=== PATIENT | female | born 2000 | race Caucasian/White ===

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

== ENCOUNTER 2023-03-14 17:27 | Emergency (ER) | payer BC ==
[2023-03-14 18:47] LABS: Appearance,Urine Clear (Clear); Bilirubin,Urine Negative (Negative); Blood,Urine Negative (Negative); Color,Urine Colorless; Glucose,Urine (UA) Negative (Negative); Ketones,Urine Trace (Negative); Leukocyte Esterase,Urine Negative (Negative); Nitrite,Urine Negative (Negative); PH, Urine 6.5 (5.0-8.0); Protein,Urine Trace (Negative); Specific Gravity,Urine 1.019 (1.001-1.035); Urobilinogen,Urine <2.0 mg/dL (<2.0)
[2023-03-14] MEDS: ACETAMINOPHEN TAB 500 MG TAB PO STA (18:52)
[2023-03-14 18:54] LABS: Potassium 3.6 mmol/L (3.5-5.1)
[2023-03-14 18:55] LABS: ALT 15 U/L (4-34); AST 24 U/L (14-36); African American GFR (CKD) >90 (>60 ml/min/1.73 sqM); Alcohol <10 mg/dL; Blood Urea Nitrogen 9 mg/dL (7-17); Chloride 108 mmol/L (98-107); Non-African American GFR(CKD) >90 (>60 ml/min/1.73 sqM); Sodium 138 mmol/L (137-145); Total Bilirubin 0.5 mg/dL (0.2-1.3)
[2023-03-14 19:01] LABS: Amphetamine Screen,Urine Not Detected (NotDetected); Barbiturate Screen,Urine Not Detected (NotDetected); Benzodiazepines Screen,Urine Not Detected (NotDetected); Cocaine Screen,Urine Not Detected (NotDetected); Methadone Screen, Urine Not Detected (NotDetected); Opiate Screen,Urine Not Detected (NotDetected); Oxycodone Screen, Urine Not Detected (NotDetected); Phencyclidine Screen,Urine Not Detected (NotDetected); Tricyclic Antidepressant,Urine Not Detected (NotDetected); Urn Cannabinoid Scrn Detected (NotDetected)
[2023-03-14 19:06] LABS: Alkaline Phosphatase 73 U/L (38-126); Anion Gap 11 mmol/L; Calcium 8.8 mg/dL (8.4-10.2); Carbon Dioxide 19 mmol/L (22-30); Glucose 95 mg/dL (74-99); Magnesium 2.2 mg/dL (1.6-2.3); Total Protein 6.9 g/dL (6.3-8.2)
[2023-03-14 20:17] LABS: Basophils % (A) 0 %; Eosinophils # (A) 0.1 k/uL (0-0.7); Eosinophils % (A) 1 %; HCT 38.2 % (34.0-46.0); HGB 13.4 gm/dL (11.4-16.0); Lymphocytes # (A) 0.9 k/uL (1.0-4.8); Lymphocytes % (A) 8 %; MCH 30.5 pg (25.0-35.0); MCHC 35.2 g/dL (31.0-37.0); MCV 86.8 fL (80.0-100.0); Mean Platelet Volume 8.2; Monocytes # (A) 0.3 k/uL (0-1.0); Monocytes % (A) 2 %; Neutrophils % (A) 89 %; Platelet Count 161 k/uL (150-450); RDW 11.9 % (11.5-15.5); WBC 11.3 k/uL (3.8-10.6)
--- NOTE | 2023-03-14 20:26 | CT ---
EXAMINATION TYPE: CT brain wo con CT DLP: 1099.6 mGycm, Automated exposure control for dose reduction was used. DATE OF EXAM: 03/14/2023 7:47 PM COMPARISON: None. CLINICAL INDICATION:Female, 22 years old with history of seizure activity, acute visual loss, new ons et seizure TECHNIQUE: Brain: Axial CT images of the brain were obtained with coronal and sagittal reformats created and rev iewed. Contrast used: None. Oral contrast used: None. FINDINGS: Brain: Extra-axial spaces: No abnormal extra-axial fluid collections. Ventricular system: Within normal limits Cerebral parenchyma: No acute intraparenchymal hemorrhage or mass effect. The givens-white junction is well differentiated. Cerebellum: Unremarkable. Mass effect: No evidence of midline shift. Intracranial vasculature: unremarkable Soft tissues: Normal. Calvarium/osseous structures: No depressed skull fracture. Paranasal sinuses and mastoid air cells: Mild scattered paranasal sinus disease. Visualized orbits: Orbital contents are intact. IMPRESSION: No acute intracranial process.
--- NOTE | 2023-03-14 20:36 | CT ---
EXAMINATION TYPE: CT angio head neck CT DLP: 396.8 mGycm, Automated exposure control for dose reduction was used. DATE OF EXAM: 03/14/2023 8:01 PM COMPARISON: CT same day. CLINICAL INDICATION:Female, 22 years old with history of acute visual loss, new onset seizure; PHH, a cute visual loss, new onset seizure TECHNIQUE: Axially acquired helical CT angiogram of the head and neck was obtained with contrast. Axi al images are supplemented with 3D reconstructions and MIP images which were post-processed at an in dependent workstation. NASCET criteria used. Contrast used:65ml mL of Isovue 370 with IV Contrast, Oral contrast used: None. FINDINGS: CTA HEAD: The ophthalmic arteries appear symmetrical and patent. No evidence of acute intracranial hemorrhage, mass effect, or midline shift. The ventricles, sulci, and cisterns are unremarkable. The visualized portions of the internal carotid arteries, middle cerebral arteries, anterior cerebral arteries, and posterior cerebral arteries are patent. Atrophic left transverse sinus, right. The basilar and vertebral arteries are patent. CTA NECK: Right Carotid System: The common carotid artery and external carotid artery are patent. The carotid bifurcation demonstrate s no evidence of hemodynamically significant stenosis. The remaining portions of the internal carotid artery demonstrate normal size without significant narrowing. Left Carotid System: The common carotid artery and external carotid artery are patent. The carotid bifurcation demonstrate s no evidence of hemodynamically significant stenosis. The remaining portions of the internal carotid artery demonstrate normal size without significant narrowing. Vertebral arteries are patent without evidence hemodynamically significant stenosis. There is a three-vessel aortic arch. The origins of the great vessels are patent. No evidence of hemo dynamically significant stenosis. 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 This courses posterior to the esophagus. Upper thorax: IMPRESSION: 1. The ophthalmic arteries appear patent bilaterally. No evidence of dissection of the cervical inter nal carotid arteries or vertebral arteries or any evidence of significant stenosis at the carotid bif urcations. 2. No evidence of intracranial high-grade stenosis or intracranial aneurysm. 3. 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 This courses posterior to the esophagus.
--- NOTE | 2023-03-14 21:06 | ED ---
Seizure HPI - General Chief Complaint: Seizure Stated Complaint: Seizure Source: EMS Mode of arrival: EMS Limitations: no limitations - History of Present Illness Initial Comments: 22-year-old female presents the emergency department as a new onset seizure. History is provided by her parents. The patient was driving home from her mother's house when she had a seizure. She was on the phone with her father at the time. She reported to him that she had a visual disturbance in her right to which she felt like she couldn't see anything. The patient then lost partial vision in her left eye. Her father called EMS. The patient had been found by a bystander who moved the patient to the passenger seat and moved the patient's vehicle off the road. She reported that the seizure lasted for less than 5 minutes. Patient was rigid. She then had 15 minutes of a postictal phase. No previous history of seizure-like activity. She denies visual change at this time. Does admit to headache. There is no incontinence. The patient did not bite her tongue. She denies concern for . No recent head trauma. No recent illnesses. No fevers. No other alleviating, precipitating or modifying factors - Related Data Home Medications Medication Instructions Recorded Confirmed No Known Home Medications 03/14/23 03/14/23 Allergies Allergy/AdvReac Type Severity Reaction Status Date / Time tetrahydrozoline AdvReac Unknown Verified 03/14/23 21:15 [From [email or web address]] Review of Systems ROS Statement: Those systems with pertinent positive or pertinent negative responses have been documented in the HPI. ROS Other: All systems not noted in ROS Statement are negative. Past Medical History Past Medical History: No Reported History History of Any Multi-Drug Resistant Organisms: None Reported Past Surgical History: No Surgical Hx Reported Past Psychological History: Anxiety, Depression Smoking Status: Current every day smoker, Vaper Past Alcohol Use History: Occasional Past Drug Use History: Marijuana General Exam Limitations: no limitations General appearance: alert, in no apparent distress Head exam: Present: atraumatic, normocephalic, normal inspection Eye exam: Present: normal appearance, PERRL, EOMI. Absent: scleral icterus, conjunctival injection, periorbital swelling ENT exam: Present: mucous membranes moist, other (patient bit her left lateral tongue) Neck exam: Present: normal inspection. Absent: tenderness, meningismus, lymphadenopathy Respiratory exam: Present: normal lung sounds bilaterally. Absent: respiratory distress, wheezes, rales, rhonchi, stridor Cardiovascular Exam: Present: normal rhythm, tachycardia, normal heart sounds. Absent: systolic murmur, diastolic murmur, rubs, gallop, clicks GI/Abdominal exam: Present: soft, normal bowel sounds. Absent: distended, tenderness, guarding, rebound, rigid Extremities exam: Present: normal inspection, full ROM, normal capillary refill. Absent: tenderness, pedal edema, joint swelling, calf tenderness Back exam: Present: normal inspection Neurological exam: Present: alert, oriented X3, CN II-XII intact Psychiatric exam: Present: normal affect, normal mood Skin exam: Present: warm, dry, intact, normal color. Absent: rash Course Vital Signs 03/14/23 03/14/23 03/14/23 17:36 18:54 21:25 Temperature 98.1 F 98.0 F Pulse Rate 116 H 72 76 Respiratory 20 18 20 Rate Blood Pressure 113/73 110/84 112/82 O2 Sat by Pulse 100 98 99 Oximetry Medical Decision Making - Medical Decision Making Was pt. sent in by a medical professional or institution (, PA, LICENSED OCCUPATIONAL THERAPIST, urgent care, hospital, or halfway...) When possible be specific @ -No Did you speak to anyone other than the patient for history (EMS, parent, family, police, friend...)? What history was obtained from this source @ -EMS, parents Did you review nursing and triage notes (agree or disagree)? Why? @ -I reviewed and agree with nursing and triage notes Were old charts reviewed (outside hosp., previous admission, EMS record, old EKG, old radiological studies, urgent care reports/EKG's, halfway records)? Report findings @ -No old charts were reviewed Differential Diagnosis (chest pain, altered mental status, abdominal pain women, abdominal pain men, vaginal bleeding, weakness, fever, dyspnea, syncope, headache, dizziness, GI bleed, back pain, seizure, CVA, palpatations, mental health, musculoskeletal)? @ -Differential Seizure: Recurrent seizure disorder, febrile seizure, alcohol withdrawal, stimulants, meningitis, encephalitis, intercranial hemorrhage, intracranial tumor, stroke, eclampsia, thyrotoxicosis, hypocalcemia, hyponatremia, hypernatremia, hypomagnesemia, psychogenic, this is not meant to be an all-inclusive list. EKG interpreted by me (3pts min.). @ -yes and demonstrates sinus rhythm with a rate of 99. CO interval 168. QRS 75. QTC of 420. No acute ST segment elevations or depressions X-rays interpreted by me (1pt min.). @ -None done CT interpreted by me (1pt min.). @ -yes, no acute process U/S interpreted by me (1pt. min.). @ -None done What testing was considered but not performed or refused? (CT, X-rays, U/S, labs)? Why? @ -MRI, EEG - patient refused admission What meds were considered but not given or refused? Why? @ -None Did you discuss the management of the patient with other professionals (professionals i.e. , PA, LICENSED OCCUPATIONAL THERAPIST, lab, RT, psych nurse, high school social studies teacher, plant associate, teacher, chief sustainability officer, director case management)? Give summary @ -Spoke with Dr. Umana Was smoking cessation discussed for >3mins.? @ -No Was critical care preformed (if so, how long)? @ -No Were there social determinants of health that impacted care today? How? (Homelessness, low income, unemployed, alcoholism, drug addiction, transportatio n, low edu. Level, literacy, decrease access to med. care, [facility], rehab)? @ -No Was there de-escalation of care discussed even if they declined (Discuss DNR or withdrawal of care, Hospice)? DNR status @ -No What co-morbidities impacted this encounter? (DM, HTN, Smoking, COPD, CAD, Cancer, CVA, ARF, Chemo, Hep., AIDS, mental health diagnosis, sleep apnea, morbid obesity)? @ -None Was patient admitted / discharged? Hospital course, mention meds given and route, prescriptions, significant lab abnormalities, going to OR and other pertinent info. @ -Upon arrival patient was placed into room 24. History and physical exam was performed. IV is established. Laboratory studies are conducted. CT and CTA are performed due to the patient's acute visual disturbance. Upon return results they are discuss the patient. Patient wants to go home. I did call and speak with Dr. Umana. States that the patient should not be started on antiepileptics at this time. He will facilitate an outpatient EEG. Patient will need to follow up with neurology. No driving for 6 months or other physically strenuous activities. Return for any new or worsening symptoms. Patient agreeable with plan and was discharged in stable condition Undiagnosed new problem with uncertain prognosis? @ -Yes Drug Therapy requiring intensive monitoring for toxicity (Heparin, Nitro, Insulin, Cardizem)? @ -No Were any procedures done? @ -No Diagnosis/symptom? @ -new onset seizure Acute, or Chronic, or Acute on Chronic? @ -acute Uncomplicated (without systemic symptoms) or Complicated (systemic symptoms)? @ -complicated Side effects of treatment? @ -No Exacerbation, Progression, or Severe Exacerbation? @ -No Poses a threat to life or bodily function? How? (Chest pain, USA, GA, pneumonia, PE, COPD, DKA, ARF, appy, cholecystitis, CVA, Diverticulitis, Homicidal, Suic idal, threat to staff... and all critical care pts) @ -No - Lab Data Result diagrams: 03/14/23 20:04 03/14/23 18:20 Lab Results 03/14/23 03/14/23 03/14/23 Range/Units 18:20 18:20 18:20 WBC (3.8-10.6) k/uL RBC (3.80-5.40) m/uL Hgb (11.4-16.0) gm/dL Hct (34.0-46.0) % MCV (80.0-100.0) fL MCH (25.0-35.0) pg MCHC (31.0-37.0) g/dL RDW (11.5-15.5) % Plt Count (150-450) k/uL MPV Neutrophils % % Lymphocytes % % Monocytes % % Eosinophils % % Basophils % % Neutrophils # (1.3-7.7) k/uL Lymphocytes # (1.0-4.8) k/uL Monocytes # (0-1.0) k/uL Eosinophils # (0-0.7) k/uL Basophils # (0-0.2) k/uL Sodium 138 (137-145) mmol/L Potassium 3.6 (3.5-5.1) mmol/L Chloride 108 H (98-107) mmol/L Carbon Dioxide 19 L (22-30) mmol/L Anion Gap 11 mmol/L BUN 9 (7-17) mg/dL Creatinine 0.78 (0.52-1.04) mg/dL Est GFR (CKD-EPI)AfAm >90 (>60 ml/min/1.73 sqM) Est GFR (CKD-EPI)NonAf >90 (>60 ml/min/1.73 sqM) Glucose 95 (74-99) mg/dL Lactic Ac Sepsis Rflx Plasma Lactic Acid Kris 2.9 H* (0.7-2.0) mmol/L Calcium 8.8 (8.4-10.2) mg/dL Magnesium 2.2 (1.6-2.3) mg/dL Total Bilirubin 0.5 (0.2-1.3) mg/dL AST 24 (14-36) U/L ALT 15 (4-34) U/L Alkaline Phosphatase 73 (38-126) U/L Total Protein 6.9 (6.3-8.2) g/dL Albumin 4.0 (3.5-5.0) g/dL Urine Color Colorless Urine Appearance Clear (Clear) Urine pH 6.5 (5.0-8.0) Ur Specific [place] 1.019 (1.001-1.035) Urine Protein Trace H (Negative) Urine Glucose (UA) Negative (Negative) Urine Ketones Trace H (Negative) Urine Blood Negative (Negative) Urine Nitrite Negative (Negative) Urine Bilirubin Negative (Negative) Urine Urobilinogen <2.0 (<2.0) mg/dL Ur Leukocyte Esterase Negative (Negative) Urine HCG, Qual (Not Detectd) Urine Opiates Screen Not Detected (NotDetected) Ur Oxycodone Screen Not Detected (NotDetected) Urine Methadone Screen Not Detected (NotDetected) Ur Barbiturates Screen Not Detected (NotDetected) U Tricyclic Antidepress Not Detected (NotDetected) Ur Phencyclidine Scrn Not Detected (NotDetected) Ur Amphetamines Screen Not Detected (NotDetected) U Methamphetamines Scrn Not Detected (NotDetected) U Benzodiazepines Scrn Not Detected (NotDetected) Urine Cocaine Screen Not Detected (NotDetected) U Marijuana (THC) Screen Detected H (NotDetected) Serum Alcohol <10 mg/dL 03/14/23 03/14/23 03/14/23 Range/Units 18:20 19:22 20:04 WBC 11.3 H (3.8-10.6) k/uL RBC 4.40 (3.80-5.40) m/uL Hgb 13.4 (11.4-16.0) gm/dL Hct 38.2 (34.0-46.0) % MCV 86.8 (80.0-100.0) fL MCH 30.5 (25.0-35.0) pg MCHC 35.2 (31.0-37.0) g/dL RDW 11.9 (11.5-15.5) % Plt Count 161 (150-450) k/uL MPV 8.2 Neutrophils % 89 % Lymphocytes % 8 % Monocytes % 2 % Eosinophils % 1 % Basophils % 0 % Neutrophils # 10.0 H (1.3-7.7) k/uL Lymphocytes # 0.9 L (1.0-4.8) k/uL Monocytes # 0.3 (0-1.0) k/uL Eosinophils # 0.1 (0-0.7) k/uL Basophils # 0.0 (0-0.2) k/uL Sodium (137-145) mmol/L Potassium (3.5-5.1) mmol/L Chloride (98-107) mmol/L Carbon Dioxide (22-30) mmol/L Anion Gap mmol/L BUN (7-17) mg/dL Creatinine (0.52-1.04) mg/dL Est GFR (CKD-EPI)AfAm (>60 ml/min/1.73 sqM) Est GFR (CKD-EPI)NonAf (>60 ml/min/1.73 sqM) Glucose (74-99) mg/dL Lactic Ac Sepsis Rflx Y Plasma Lactic Acid Kris (0.7-2.0) mmol/L Calcium (8.4-10.2) mg/dL Magnesium (1.6-2.3) mg/dL Total Bilirubin (0.2-1.3) mg/dL AST (14-36) U/L ALT (4-34) U/L Alkaline Phosphatase (38-126) U/L Total Protein (6.3-8.2) g/dL Albumin (3.5-5.0) g/dL Urine Color Urine Appearance (Clear) Urine pH (5.0-8.0) Ur Specific [place] (1.001-1.035) Urine Protein (Negative) Urine Glucose (UA) (Negative) Urine Ketones (Negative) Urine Blood (Negative) Urine Nitrite (Negative) Urine Bilirubin (Negative) Urine Urobilinogen (<2.0) mg/dL Ur Leukocyte Esterase (Negative) Urine HCG, Qual Not Detected (Not Detectd) Urine Opiates Screen (NotDetected) Ur Oxycodone Screen (NotDetected) Urine Methadone Screen (NotDetected) Ur Barbiturates Screen (NotDetected) U Tricyclic Antidepress (NotDetected) Ur Phencyclidine Scrn (NotDetected) Ur Amphetamines Screen (NotDetected) U Methamphetamines Scrn (NotDetected) U Benzodiazepines Scrn (NotDetected) Urine Cocaine Screen (NotDetected) U Marijuana (THC) Screen (NotDetected) Serum Alcohol mg/dL Disposition Clinical Impression: New onset seizure Disposition: HOME SELF-CARE Condition: Stable Instructions (If sedation given, give patient instructions): Seizure/Epilepsy Discharge Instructions & Follow-Up Additional Instructions: They will get in touch with you from the hospital to schedule the EEG. Dr. Umana will be ordering this. No driving until you are seizure free for 6 months. Return for any new or worsening symptoms. You will need to see a neurologist. I recommend seeing Dr. Brooks, who is located in [place] Is patient prescribed a controlled substance at d/c from ED?: No Referrals: Frank Skelton MD [Primary Care Provider] - 1-2 days Rodrigo Brooks MD [STAFF PHYSICIAN] - 1-2 days Time of Disposition: 21:13
[2023-03-14 21:46] VITALS: BP 112/82; PULSE 76; RESP 20; TEMP 98
--- NOTE | 2023-04-01 15:14 | P.PN ---
Progress Note - Text Progress Note Date: 04/01/23 On 03/14/2023 patient presented to the ED for new onset seizure. Patient at that time did not want to weight in the hospital and wanted further work-up as an outpatient. We are able to coordinate an EEG as an outpatient sooner than for her to follow-up with a neurologist to get an EEG. The EEG shows a rare left temporal discharges which can increase risk for seizure. Also has temporal slowing. No seizure on the EEG. I personally called the patient via phone and spoke with her and notified her that I recommend that she follows up with a neurologist as soon as possible. She stated that she has an appointment with her PCP within a few days and will get referral. I also notified her that she needs to be started on antiepileptic drug and we'll defer that to the primary and her neurologist. i notified her that per [place] DMV for seizure, avoid driving for 6 month until seizure-free, avoid heights, avoid swimming unassisted or using heavy machinery.
== END 2023-03-14 21:30 | disposition home or self-care (01) ==
LOC: EC 17:27
DX: R56.9 Unspecified convulsions (principal); F17.290 Nicotine dependence, other tobacco product, uncomplicated; F12.90 Cannabis use, unspecified, uncomplicated; Z86.59 Personal history of other mental and behavioral disorders; Z88.8 Allergy status to other drugs, medicaments and biological substances
CPT/HCPCS: 99285 ×2; 36415; 93005; 80053; 83605; 83735; 85025; 81003; 81025; 80306; 80320; 70496; 70450; 70498; Q9967

== ENCOUNTER → 2023-03-28 | Outpatient (CLI) | payer BC ==
--- NOTE | 2023-03-28 22:12 | EEG ---
ELECTROENCEPHALOGRAM REPORT CLINICAL HISTORY: This is a 22-year-old woman who had a reported episode of stiffening with eye rolling back and passing out. The video EEG is obtained to evaluate for seizure epileptiform activity. RELEVANT MEDICATIONS: The patient is not on any antiepileptic drugs per the diesel lube tech report. EEG TYPE: A routine 21-channel EEG with video using the 10/20 electrode placement system. DESCRIPTION: Wakefulness is only obtained. During awake state, the background consists of low-to- moderate voltage of 11 hertz activity that is well modulated, well sustained. There is no physiological stage 2 sleep architecture. There is no focal slowing. Interictal and ictal is none. ACTIVATION PROCEDURE: Photic stimulation did evoke a posterior driving response and multiple flash frequencies. There is no abnormality during the photic stimulation. Hyperventilation, there is no abnormality. CLINICAL INTERPRETATION: This is a normal routine EEG. There is no focal slowing, epileptiform discharge, or seizure on the EEG. A normal routine EEG does not rule out underlying epilepsy. I highly recommend consideration of sleep-deprived EEG versus a prolonged EEG versus an epilepsy monitoring unit for further evaluation and we will defer that decision to her neurologist. Clinical correlation is recommended. MMODL / IJN: [id number] /
== END ==
LOC: NEUROMAIN 07:47
PROVIDERS: ATTEND Student in an Organized Health Care Education/Training Program
DX: G40.89 Other seizures (principal); Z91.018 Allergy to other foods
CPT/HCPCS: 95816

== ENCOUNTER → 2023-04-26 | Outpatient (CLI) | payer BC ==
--- NOTE | 2023-04-27 01:49 | EEG ---
ELECTROENCEPHALOGRAM REPORT STUDY: This is a prolonged 2.5-hour EEG with video. CLINICAL HISTORY: This is a 22-year-old female with reported stiffening with eyes rollback and passing out, who presented to our emergency department on 03/14/2023, who had an abnormal routine EEG on 03/28/2023 and obtained further evaluation. The video EEG is obtained to evaluate for seizure epileptiform discharges. EEG is done again as stated above. This is a prolonged 2.5-hour EEG with video using the 10/20 electrode placement system. MEDICATIONS: The patient is not on any antiepileptic drugs. DESCRIPTION: Wakefulness, drowsiness, and stage 2 sleep is obtained. During awake state, the posterior-dominant rhythm consists of [id number] voltage of 11 hertz activity that is well modulated, well sustained. Stage II sleep architecture is obtained with diffuse K complexes and sleep spindles. There is rare left temporal slowing. INTERICTAL AND ICTAL: There is sharp/spike slow waves over the left mandaen and it appears standing from T3/T5 leads. At very rare times, there is questionable short/spike over the right parietal region. At times, the background, there is diffuse delta intermixed with theta and it appears sharply contoured lasting between 2 to 6 seconds, but there was no evolution and does not appear like a seizure. No seizures noted during the study. ACTIVATION PROCEDURE: Photic stimulation did evoke a posterior driving response and multiple flash frequencies. There is no abnormality during the photic stimulation. During the hyperventilation, there are no abnormalities noted. CLINICAL INTERPRETATION: This is an abnormal prolonged 2.5-hour EEG with video. The epileptiform discharges increase risk for focal seizure as well as status epilepticus. The focal slowing is suggestive of cerebral dysfunction in the involved region. No seizures noted during the study. I highly recommend the patient to be started on antiepileptic drug as well as to be evaluated by epileptologist as an outpatient. I recommended an epilepsy monitoring unit for further evaluation and that should be coordinated by her epileptologist. Clinical correlation is recommended. MMODL / IJN: [id number] /
== END ==
LOC: NEUROMAIN 07:58
PROVIDERS: ATTEND Family Medicine
DX: R56.9 Unspecified convulsions (principal); Z88.8 Allergy status to other drugs, medicaments and biological substances
CPT/HCPCS: 95700; 95713